=== PATIENT | male | born 1985 | race Caucasian/White ===

== ENCOUNTER 2017-01-14 06:13 | Observation (INO) ==
[~2017-01-14 06:13] MED LIST: DEXAMETHASONE 4 MG/1 ML VIAL IV ONE
--- NOTE | 2017-01-14 07:11 | History and Physical Update ---
History and Physical Update - History and Physical H&P was reviewed, the patient examined and there: are no changes in the patients condition since last H&P was completed. - Dictation Physical: refer to scanned H&P - Physical Exam Mental Status: alert and oriented Heart: regular rate and rhythm Lung: clear to auscultation
[2017-01-14] MEDS ORDERED: LACTATED RINGERS 1,000 ML IV SCH (09:00)
[2017-01-14] MEDS ORDERED: LIDOCAINE 1%/EPI INJ 20 ML VIAL ONE (10:51)
[2017-01-14] MEDS ORDERED: OXYMETAZOLINE 0.05% NASAL SPRAY 15 ML BOTTLE ONE (10:51)
[2017-01-14] MEDS ORDERED: ONDANSETRON 4 MG/2 ML VIAL IV PRN ×2 (13:30→13:53)
[2017-01-14] MEDS ORDERED: diphenhydrAMINE 50 MG/1 ML VIAL IV PRN (13:30)
[2017-01-14] MEDS ORDERED: HYDROcod/ACETAMIN 7.5-325 MG/15 ML UDCUP PO PRN (13:35)
--- NOTE | 2017-01-14 13:48 | Operative Note ---
Date of procedure: 01/14/17 Pre-op diagnosis: Obstructive sleep apnea Post-op diagnosis: same Procedure: 1. Hyoid suspension 2. UPPP/lateral expansion palatopharyngoplasty After appropriate informed consent was signed and placed on the chart patient was taken back to the operative theater where timeout was performed to verify the correct patient with correct procedure patient was transferred in a supine position onto the operative table where anesthesia performed general endotracheal anesthesia. The patient's bed was rotated 90 for optimal surgical angle. The patient was sterilely prepped and draped. The patient's hyoid and area of incision submentally were marked. They were injected with a total of 3 cc of 1% lidocaine with 1 100,000 epinephrine. Total of 10 minutes were spent for appropriate vasoconstriction. A 15 blade scalpel was used to incise the previously planned submental incision. Bovie cautery on a setting of 20 spray coagulation was used to dissect down through the platysma. The geniohyoid was vertically dissected in the midline and dissection was carried to the posterior portion of the chin/ mandible. On the left and right side of the symphysis a drill was used to make jet pilot holes where a screw set device was placed in the mandible/chin. At this time blunt dissection along with Bovie cautery was used to dissect down to the hyoid which was ultimately grasped with the Allis forcep and used to suspend the hyoid anteriorly. A Encore system by [employer] was used to pass a suture from inferior to superior on the right side of the hyoid. A similar procedure was performed on the patient's left side of his thyroid from superior to inferior where a suture was also passed. The sutures were then fed through the previously placed chin/mandibular set screws. The patient was then placed in a normal chin/slight flexion where the sutures were used to suspend the hyoid approximately 1 cm or more from its previously more posteriorly placed position. The set screws were then anchored tight holding the suspension in place. Several knots were thrown at the end of each stay suture confirming placement. The geniohyoid was reapproximated midline with 5-0 Vicryl sutures and running locking fashion. Additionally the platysma was reapproximated though dehiscent and portions of the midline using a running locking 5-0 Vicryl suture. Simple interrupted buried 5-0 Vicryl sutures were used to reapproximate the subcutaneous layer. A 6-0 nylon suture was used to reapproximate the submental incision. This was dressed with Mastisol and Steri- Strips. My attention was then turned to the patient's oropharynx for a Krystian Donavan mouthgag was inserted and suspended from a Dangelo stand using the Dido cigar inspector. The patient's left tonsil was grasped with a pair of Allis forceps and retracted midline and right tonsillectomy was performed using Bovie electrocautery on a setting of 20 spray. A similar procedure was performed on the left. The patient's right posterior pillar was then visualized and Bovie cautery on a setting of 20 spray was used to dissect the palatopharyngeus from the overlying mucosa. The palatopharyngeus was then transected at its inferior border and a horizontal mattress suture was used to reroute the palatopharyngeus to the right hard palate hamulus. The anterior and posterior pillars were then reapproximated using 3-0 Vicryl suture in a horizontal mattress and oversewn with a running locking suture. A similar procedure was performed on the left side where the palatopharyngeus was grasped and dissected free from the overlying mucosa. The palatopharyngeus was then transected at its inferior border and with a horizontal mattress suture rerouted towards the hamulus of the palate. The anterior and posterior pillars were then reapproximated using 3-0 Vicryl suture in a horizontal mattress fashion and oversewn with a 3-0 Vicryl suture in a running locking fashion. Our attention was then turned to the uvula where the anterior face of the uvula and a corresponding mirror image of the soft palate were dissected. The tip of the uvula was then reattached with a horizontal mattress suture to the mirror-image dissection placed on the soft palate. The uvula was then oversewn with a running locking 3-0 Vicryl suture completing the uvuloplasty and the lateral expansion palatopharyngoplasty. The patient's oral cavity was thoroughly irrigated and no evidence of hemorrhage was visualized. The patient was allowed to emerge from anesthesia uneventfully and tolerated the procedure well he was transferred to the PACU and then ultimately to the ICU for observation. Anesthesia: GETA Surgeon / Physician: Jamie Wall Estimated blood loss: minimal Specimens: other (Bilateral tonsils and uvula) Condition: stable Disposition: PACU Discharge Plan - Discharge Medications No Action No Known Home Medications [No Known Home Medications] - Follow Up or Referral - Forms/Instructions
[2017-01-14] MEDS ORDERED: MIDAZOLAM 2 MG/2 ML VIAL ONE (13:53)
[2017-01-14] MEDS ORDERED: ACETAMINOPHEN 1,000 MG/100 ML VIAL IV ONE (13:54)
[2017-01-14] MEDS ORDERED: fentaNYL 100 MCG/2 ML VIAL ONE (13:54)
[2017-01-14] MEDS ORDERED: PROPOFOL 200 MG/20 ML VIAL IV ONE (13:55)
[2017-01-14] MEDS ORDERED: DEXAMETHASONE 20 MG/5 ML VIAL ONE (13:55)
[2017-01-14] MEDS ORDERED: GLYCOPYRROLATE 0.4 MG/2 ML VIAL ONE (13:55)
[2017-01-14] MEDS ORDERED: SEVOFLURANE 1 UNIT/15 MINUTE INH ONE (13:55)
[2017-01-14] MEDS ORDERED: LACTATED RINGERS 1,000 ML IV ONE (13:57)
[2017-01-14] MEDS ORDERED: HYDROmorphone 2 MG/1 ML VIAL ONE (13:58)
[2017-01-14] MEDS ORDERED: HYDROmorphone PCA 30 MG/30 ML SYRINGE IV ONE (13:58)
[2017-01-14] MEDS ORDERED: ONDANSETRON 4 MG/2 ML VIAL ONE (13:59)
[2017-01-14] MEDS: HYDROmorphone 2 MG/1 ML VIAL IV PRN ×4 (14:00→14:15)
[2017-01-14] MEDS: HYDROmorphone PCA 30 MG/30 ML SYRINGE IV SCH (14:03)
--- NOTE | 2017-01-14 14:48 | Anesthesia Post-Op ---
Anesthesia Post OP - Post Ansesthetic Evaluation Patient seen in post op: Yes Resp: within normal limits CV: within normal limits Mental: within normal limits Temp: within normal limits [id number]: within normal limits Nausea and Vomiting: within normal limits Pain: within normal limits
[2017-01-14] MEDS: DEXAMETHASONE 4 MG/1 ML VIAL IV SCH ×2 (19:20→21:20)
[2017-01-14] MEDS: LACTATED RINGERS 1,000 ML IV SCH (19:21)
[2017-01-14] MEDS: IBUPROFEN 100 MG/5 ML UDCUP PO SCH ×3 (19:21→21:18)
[2017-01-14] MEDS: AMOXICILLIN 50 MG/ML 150 ML/BOTTLE PO SCH (21:19)
[2017-01-14] MEDS: CHLORHEXIDINE 0.12% ORAL RINSE 60 ML BOTTLE SWISH/SPIT SCH (21:20)
[2017-01-14] MEDS ORDERED: DEXAMETHASONE 4 MG/1 ML VIAL IV SCH (21:30)
[2017-01-15] MEDS: IBUPROFEN 100 MG/5 ML UDCUP PO SCH ×4 (01:41→13:11)
[2017-01-15] MEDS: DEXAMETHASONE 4 MG/1 ML VIAL IV SCH ×2 (05:10→13:10)
[2017-01-15] MEDS: AMOXICILLIN 50 MG/ML 150 ML/BOTTLE PO SCH (09:17)
[2017-01-15] MEDS: CHLORHEXIDINE 0.12% ORAL RINSE 60 ML BOTTLE SWISH/SPIT SCH (09:18)
[2017-01-15] MEDS: HYDROmorphone PCA 30 MG/30 ML SYRINGE IV SCH (13:11)
[2017-01-15] MEDS: LACTATED RINGERS 1,000 ML IV SCH (14:05)
[2017-01-15 16:29] VITALS: BP 121/59
--- NOTE | 2017-01-15 16:47 | Discharge Summary ---
Hospital Course - Hospital Course Hospital Course: Status post lateral expansion palatopharyngoplasty/UPPP with hyoid suspension for obstructive sleep apnea he has had an expected postoperative recovery with no reason for concern and well-controlled pain on oral/liquid pain medicines. We will discharge him home today and he will follow-up in 1-2 weeks. - Time spent with patient Time with patient DS: Greater than 30 minutes Diagnosis - Discharge Diagnosis (1) Obstructive sleep apnea Status: Acute Specialty Discharge - Follow Up or Referrals Follow up with: Jamie Wall DO [Physician] - 2 Weeks Discharge Plan - Discharge Data Disposition: Disch To Home/Self Care Condition at Discharge: Stable Discharge Diet: advance to your usual diet Activity: resume usual activities as tolerated Hygiene: no restrictions Weight Bearing at Discharge: full weight bearing - Discharge Medications New Chlorhexidine 0.12% Oral Rinse [Peridex] 15 ml SWISH/SPIT BID #1 bottle HYDROcod/ACETAM 7.5-325MG/15ML 15 ml PO Q4H PRN #120 tablespoon PRN Reason: Pain Moderate (4-7) Ibuprofen Liquid [Motrin Liquid] 300 mg PO Q4H #120 tablespoon Mupirocin 2% Oint [Bactroban 2% Oint] 1 applic TOP TID #22 gm Sulfameth/Trimeth Liquid [Bactrim Susp] 20 ml PO BID #400 ml prednisoLONE [Prelone Syrup] 15 mg PO DAILY #5 tablespoon No Action No Known Home Medications [No Known Home Medications] - Follow Up or Referral - Forms/Instructions Exam - Constitutional Vitals: Period Temp Pulse Resp BP Sys/Márquez Pulse Ox Last 24 Hr 97.7 F-98.2 F 46-93 14-30 121-152/56-94 92-95 General appearance: normal weight, no acute distress - Head Head exam: Present: normal inspection, normocephalic - Eye Eye exam: Present: EOMI Pupils: Present: HAILE - ENT ENT exam: Present: normal exam, normal external ear exam, other (Normal post UPPP exam) - Neck Neck exam: Present: normal inspection, other (Well-healing submental incision from hyoid suspension) - Respiratory Respiratory exam: Present: clear to auscultation bilaterally - Cardiovascular Cardiovascular exam: Present: regular rate and rhythm - GI/Abdominal GI/Abdominal exam: Present: soft - Extremities Exam Extremities exam: Present: normal inspection, normal capillary refill - Neurological Exam Neurological exam: Present: alert, oriented X3, CN II-XII intact - Psychiatric Psychiatric exam: Present: normal affect, normal mood - Skin Skin exam: Present: normal color, warm DS: Provider Date of admission: 01/14/17 13:30 Primary care physician: Pat Vasquez Attending physician on admission: Jamie Wall DO Discharging clinician: Jamie Wall DO Expected date of discharge: 01/15/17
--- NOTE | 2017-01-16 14:15 | Pathology Report from [facility] ---
[facility] – [place] ACCESSION # : [id number] PATIENT NAME : Aristeo Cuevas ORDERING DR : Jamie Wall DO CLINICAL HX: Sleep apena POST-OP DX: Same SPECIMEN INFO: #1 RT tonsil #2 LT tonsil #3 Uvula/soft palate GROSS DESCRIPTION: Received in formalin in three parts labeled:#1 ARISTEO CUEVAS & #1 RT TONSIL is a red polanco tonsil measuring 3.2 x 2.5 cm. A veterans employment representative section is submitted in cassette #1.#2 ARISTEO CUEVAS & #2 LT TONSIL is a red polanco tonsil measuring 3.4 x 2.2 cm. A veterans employment representative section is submitted in cassette #2.#3 ARISTEO CUEVAS & #3 UVULA/SOFT PALATE are red polanco tissue fragments measuring 2.0 x 1.3 cm collectively. [employer] Supervisor sections submitted in cassette #3. DIAGNOSIS FOR ARISTEO CUEVAS: #1 & #2 RIGHT & LEFT TONSILS: Chronic inflammation with lymphoid hyperplasia.#3 UVULA/SOFT PALATE: Marked edema and congestion. COLLECTED DATE: 01/14/2017 [facility] REPORT DATE: 01/15/2017 ELECTRONICALLY SIGNED BY: Watson Coats M.D. 01/15/2017 - 10:54:14 [facility]
== END 2017-01-15 17:45 | disposition home or self-care (01) ==
LOC: N.OR 06:13 → N.SDSINP 06:15 → INTOOBSV 13:30 → N.SDSINP 13:30 → N.ICU 14:08
PROVIDERS: ADMIT Otolaryngology; ATTEND Otolaryngology